=== PATIENT | female | born 1930 | race Caucasian/White ===

== ENCOUNTER → 2017-03-15 | Outpatient (CLI) | payer OTHER, MEDICARE | LOC: BMCIMAGING 09:13 | PROVIDERS: ATTEND Internal Medicine | DX: Z12.31 Encounter for screening mammogram for malignant neoplasm of breast (principal) | CPT/HCPCS: G0202 ==

== ENCOUNTER 2017-03-20 12:08 | Inpatient (IN) | payer OTHER, MEDICARE ==
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
[2017-03-20] MEDS ORDERED: ONDANSETRON DISINTEGRATING 4 MG TAB PO PRN (16:29)
[2017-03-20] MEDS ORDERED: ONDANSETRON 4 MG/2 ML VIAL IVP PRN (16:29)
[2017-03-20] MEDS ORDERED: ACETAMINOPHEN 325 MG TAB PO PRN (16:29)
[2017-03-20] MEDS ORDERED: oxyCODONE IR 5 MG TAB PO PRN (16:37)
--- NOTE | 2017-03-20 17:15 | GHP ---
[f rep st] HISTORY AND PHYSICAL DATE OF ADMISSION: 03/20/2017 HISTORY OF PRESENT ILLNESS: The patient is an 86-year-old female with a history of hypertension and TIA, who had a mechanical fall today, landing on her left elbow and hip, and she also bumped her head . She denies any antecedent chest pain, palpitations, or loss of consciousness. She has not had fev er, chills, or urinary symptoms today. She presented to the emergency department where she was diagn osed with a lateral epicondylar fracture. She had significant pain in her hip. Imaging has been neg ative for fracture but she is unable to stand. The patient currently states her pain is well controlled unless she is trying to move or stand. She is hungry. PAST MEDICAL HISTORY: Hypertension and TIA. ALLERGIES: Alendronate, alprazolam, amitriptyline, amlodipine, aspirin, azelastine, chlorpheniramine , ciprofloxacin, clindamycin, dextromethorphan, diphenhydramine, doxepin, guaifenesin, hydrocodone, i bandronate, ibuprofen, levofloxacin, lisinopril, losartan, melatonin, metoprolol, naproxen, nebivolol , phenylephrine, propofol, sulfa, temazepam, tramadol, trazodone, trimethoprim, Chlor-Trimeton, metal , and vitamins. HOME MEDICATIONS: Tylenol, PreserVision, vitamin D3, ascorbic acid, Plavix, and aspirin. SOCIAL HISTORY: Lives in [place]. No tobacco. No alcohol. FAMILY HISTORY: Parents . PHYSICAL EXAMINATION: VITAL SIGNS: Temp 36.9, blood pressure 193/96, pulse 88, breathing 18 times a minute, 93% in room air. GENERAL: No acute distress. HEENT: Sclerae anicteric. Oropharynx clear . Mucous membranes moist. NECK: Supple. No lymphadenopathy or JVD. LUNGS: Clear to auscultation bilaterally. HEART: S1, S2. ABDOMEN: Soft, nontender, nondistended. EXTREMITIES: Her lower ext remities are without edema. She has pain over her left hip. Her left fingers are neurovascularly in tact. Her left hand is in a cast. LABORATORY DATA: None. RADIOLOGY: Elbow fracture, interpreted by me, shows olecranon fracture. Hip x-ray shows no fracture and a prosthesis in place. Possible left superior pubic ramus fracture. Followup CAT scan shows portillo bcutaneous hematoma over the lateral aspect of the left hip with no osseous findings. Head CT shows no acute intracranial findings diffuse cerebral atrophy. Cervical spine CT shows no posttraumatic ab normality. I have discussed the case with Dr. German Bender and Sandra Gudino PA-C, in the emergenc y department. ASSESSMENT/PLAN: An 86-year-old female with mechanical fall. 1. Mechanical fall: I think she needs to be seen by PT and OT. 2. Left hip pain: Advanced imaging has shown no evidence of fracture. She will be weightbearing as tolerated and follow up from there. 3. History of transient ischemic attack. Will continue her aspirin and half dose Plavix. 4. Pain: Patient has a great deal, and I have written for scheduled Tylenol and p.r.n. oxycodone as these do not appear listed as one of her allergies. I do not thinks she requires IV pain medicines at this point in time. 5. Prophylaxis: Pharmacologic prophylaxis indicated if in the hospital longer than 24 hours. Will go ahead and start sequential compression devices tonight. 6. Olecranon fracture: In a cast. Hand is neurovascularly intact. Will follow. DISPOSITION: Observation status. CODE: Full. /[id number]/MODL
[2017-03-20] MEDS: PRESERVISION AREDS2 FORMULA EYE VIT 1 EACH PO SCH (21:29)
[2017-03-20] MEDS: ACETAMINOPHEN 500 MG TAB PO SCH ×2 (21:29→22:59)
[2017-03-21] MEDS: ACETAMINOPHEN 500 MG TAB PO SCH ×4 (03:24→23:31)
[2017-03-21 05:31] LABS: % IMMATURE GRANULYOCYTES 0.5 % (0.0-1.1); ABSOLUTE IMMATURE GRANULOCYTES 0.03 10^3/uL (0.00-0.10); ADD DIFF? NO; ADD MORPH? NO; ADD SCAN? NO; ATYPICAL LYMPHOCYTE FLAG 20 (0-99); FRAGMENT RBC FLAG 0 (0-99); HEMATOCRIT 37.4 % (38.0-47.0); HEMOGLOBIN 12.9 g/dL (12.6-16.3); LEFT SHIFT FLG 0 (0-99); LIPEMIA HEMOLYSIS FLAG 90 (0-99); MEAN CELL HEMOGLOBIN 29.1 pg (27.9-34.1); MEAN CELL HEMOGLOBIN CONCENTR. 34.5 g/dL (32.4-36.7); MEAN CELL VOLUME 84.4 fL (81.5-99.8); MEAN PLATELET VOLUME 9.6 fL (8.7-11.7); PLATELET CLUMPS FLAG 0 (0-99); PLATELET COUNT 246 10^3/uL (150-400); RED BLOOD CELL COUNT 4.43 10^6/uL (4.18-5.33); RED CELL DISTRIBUTION WIDTH 13.2 % (11.5-15.2)
[2017-03-21] MEDS ORDERED: Herbals/Supplements -Info Only PO SCH (09:00)
[2017-03-21] MEDS: PRESERVISION AREDS2 FORMULA EYE VIT 1 EACH PO SCH ×2 (11:30→21:42)
[2017-03-21] MEDS: CHOLECALCIFEROL VIT D3 1,000 UNITS TAB PO SCH (11:30)
[2017-03-21] MEDS: ASPIRIN 81 MG CHEWABLE TAB PO SCH (11:30)
[2017-03-21] MEDS: CLOPIDOGREL BISULFATE 75 MG TAB PO SCH ×2 (11:31→21:49)
--- NOTE | 2017-03-21 12:00 | ASMTCMCOM ---
CM Note CM Note Notes: PT rec home vs SNF, INSTRUCTIONAL MATERIALS DIRECTOR clears pt. 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 Pt requests referral to [facility]. Pt is currently observation status. Date Signed: 03/21/2017 12:00 PM Electronically Signed By:MAGNO Rucker
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
[2017-03-22] MEDS: ACETAMINOPHEN 500 MG TAB PO SCH ×3 (06:10→20:29)
[2017-03-22] MEDS: ASCORBIC ACID 500 MG TAB PO SCH (08:15)
[2017-03-22] MEDS: PRESERVISION AREDS2 FORMULA EYE VIT 1 EACH PO SCH ×2 (08:16→20:29)
[2017-03-22] MEDS: CHOLECALCIFEROL VIT D3 1,000 UNITS TAB PO SCH (08:16)
[2017-03-22] MEDS: ASPIRIN 81 MG CHEWABLE TAB PO SCH (08:16)
[2017-03-22] MEDS: ENOXAPARIN 40 MG/0.4 ML SYR SC SCH (09:22)
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
[2017-03-22] MEDS: hydrALAZINE 10 MG TAB PO PRN (10:33)
--- NOTE | 2017-03-22 12:03 | ASMTCMCOM ---
CM Note CM Note Notes: Pt accepted at [facility] for d/c Sunday. Date Signed: 03/22/2017 12:02 PM Electronically Signed By:MAGNO Rucker
--- NOTE | 2017-03-22 12:05 | GCON ---
[f rep st] CONSULTATION ORTHOPEDIC CONSULTATION DATE OF CONSULTATION: 03/22/2017 REASON FOR CONSULTATION: Left olecranon fracture. HISTORY OF PRESENT ILLNESS: The patient is an 86-year-old female, who had a mechanical fall on . She fell on her left hip and elbow. She was seen in the emergency department. Hip imaging, both p nava imaging as well as CT scan were negative for fracture. Left elbow imaging showed a nondisplaced olecranon fracture. She was admitted for pain control, physical therapy, and occupational therapy. I was asked to see her in the hospital. PRIOR MEDICAL HISTORY: Hypertension. There is a history of a TIA. HOME MEDICATIONS: See the attached medication list. SOCIAL HISTORY: She lives alone in [place]. Does not drink. Does not smoke. REVIEW OF SYSTEMS: No shortness of breath. No chest pain. Complaining of some hand pain with the spl int and some mild elbow pain when she moves today. Otherwise, review of systems is unremarkable. PHYSICAL EXAM: VITAL SIGNS TODAY: Her vital signs today are blood pressure is 132/65, heart rate is 67, respiratory rate is 15, oxygen saturations 94% on room air. GENERAL: She is alert and oriented x3 . Pleasant and cooperative. EXTREMITIES: Her left elbow is in a posterior splint that incorporates th e hand. She is moving her fingers well. Sensation in the radial, ulnar and median nerve distributions is intact. She has near full range of motion of the shoulder. She is able to move all fingers. IMAGING STUDIES: X-rays of the left elbow are reviewed. They show a nondisplaced olecranon fracture. She has diffuse osteopenia. ASSESSMENT: Left olecranon fracture. PLAN: We will keep her in the posterior splint. I loosened the Rafael wrap around her hand to give her a little relief from the pressure. I would like to re-x-ray her in 1 week. She had initially set up a n appointment at [facility] but she failed to . in a skil led nursing facility due to her impaired mobility. She may use a cane in the right hand. I do not wan t her to bear any weight on the left hand. Hopefully we can start range of motion exercises in the ak xt 2-3 weeks and get her out of the splint. /[id number]/MODL
[2017-03-22] MEDS: CLOPIDOGREL BISULFATE 75 MG TAB PO SCH (20:30)
[2017-03-23] MEDS: hydrALAZINE 10 MG TAB PO PRN (00:26)
[2017-03-23] MEDS: ACETAMINOPHEN 500 MG TAB PO SCH ×4 (04:33→22:06)
[2017-03-23] MEDS: ENOXAPARIN 40 MG/0.4 ML SYR SC SCH (10:11)
[2017-03-23] MEDS: [UNRECOGNIZED DRUG - OTHER] PO SCH (10:12)
[2017-03-23] MEDS: PRESERVISION AREDS2 FORMULA EYE VIT 1 EACH PO SCH ×2 (10:13→22:08)
[2017-03-23] MEDS: CHOLECALCIFEROL VIT D3 1,000 UNITS TAB PO SCH (10:13)
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
[2017-03-23] MEDS: VALSARTAN 40 MG TAB PO SCH ×2 (12:59→22:09)
[2017-03-23] MEDS ORDERED: Herbals/Supplements -Info Only PO SCH (16:32)
[2017-03-23] MEDS: CLOPIDOGREL BISULFATE 75 MG TAB PO SCH (22:09)
[2017-03-24 00:26] VITALS: RESP 16; TEMP 98.5; O2SAT 94
[2017-03-24] MEDS: ACETAMINOPHEN 500 MG TAB PO SCH ×2 (02:51→08:52)
[2017-03-24 07:35] VITALS: BP 182/80; PULSE 70
[2017-03-24] MEDS: PRESERVISION AREDS2 FORMULA EYE VIT 1 EACH PO SCH ×2 (08:50→09:38)
[2017-03-24] MEDS: ASCORBIC ACID 500 MG TAB PO SCH (08:51)
[2017-03-24] MEDS: VALSARTAN 40 MG TAB PO SCH (08:52)
[2017-03-24] MEDS: ENOXAPARIN 40 MG/0.4 ML SYR SC SCH (08:53)
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
[2017-03-24] MEDS: CHOLECALCIFEROL VIT D3 1,000 UNITS TAB PO SCH (09:38)
[2017-03-24] MEDS: [UNRECOGNIZED DRUG - OTHER] PO SCH (09:39)
--- NOTE | 2017-03-24 09:49 | PDIAF ---
- Diagnosis Diagnosis: left olecranon fx, pelvis fx/ uncontrolled htn Code Status: Full Code - Medication Management Discharge Medications: Medications to Continue on Transfer Acetaminophen [Tylenol 325mg (*)] 650 mg PO Q6 PRN 03/20/17 [Last Taken Unknown] Ascorbic Acid [Vitamin C 500 mg (*)] 450 mg PO TUTHSA 03/20/17 [Last Taken Unknown] C/E/Zn/Cu/OM3/DHA/EPA/LUT/ZEAX [Preservision Areds 2 Softgel] 1 each PO BID 09/01 [Last Taken 03/20/17 06:00] Cholecalciferol Vit D3 [Vitamin D3 (*)] 1,000 units PO DAILY 03/20/17 [Last Taken Unknown] Clopidogrel Bisulfate [Plavix (*)] 37.5 mg PO DAILY 03/20/17 [Last Taken ] Herbals/Supplements -Info Only 1 ea PO DAILY 03/20/17 [Last Taken Unknown] Herbals/Supplements -Info Only 1 ea PO FR 03/20/17 [Last Taken Unknown] Patricia Sommer Jr Multivitamins 2 tab PO DAILY 03/22/17 [Last Taken Unknown] Acetaminophen [Tylenol ES 500 mg (*)] 1,000 mg PO Q8 tab 03/24/17 [Last Taken Unknown] Valsartan [Diovan (*)] 40 mg PO BID tab 03/24/17 [Last Taken Unknown] Discharge Medications: Refer to the Discharge Home Medication list for PRN reason. - Orders Services needed: Physical Therapy, Occupational Therapy Diet Recommendation: no restrictions on diet Diet Texture: Regular Texture Diet Activity/Weight Bearing Restrictions: splint to left arm Additional: Losartan is a new medication for Gina/ this may need to be titrated up if bp remains elevated. - Labs/Radiology Imaging Orders: xray in one week of left elbow/ results to Dr Bender/ see him in 1-2 week - Follow Up Care Current Providers and Referrals: Patient,NotPresent [Unknown] - As per Instructions
--- NOTE | 2017-03-24 10:14 | GDS ---
[f rep st] DISCHARGE SUMMARY DISCHARGE DIAGNOSES: 1. Mechanical fall. 2. Left hip pain/left superior pubic ramus fracture. 3. Left olecranon elbow fracture. 4. Hypertension, uncontrolled. 5. Home stressors. CONSULTATIONS DURING STAY: Dr. German Bender. BRIEF HISTORY: The patient is an 86-year-old female with a history of hypertension, TIA. She presen chung to the emergency room after sustaining a fall and landing on her left elbow and hip area. She al so bumped her head. HOSPITAL COURSE: 1. Mechanical fall. She is doing well with PT and OT. She will be going to a half-way [facility] for rehab. 2. Left hip pain. The CT of her lower extremity reveals a subcutaneous hematoma over the lateral as pect of the left hip. Her hip x-ray shows a possible left superior pubic ramus fracture. She is abl e to ambulate with the use of her cane. 3. Left olecranon elbow fracture. This is nondisplaced. She is in a splint. She will get a repeat x-ray in a week and further followup with Dr. Bender. 4. Hypertension. Blood pressure has been very elevated. A trial of hydralazine was initiated. The patient did not like this, felt like this caused insomnia. She has been placed on low-dose valsarta n. This likely will need to be increased, but her blood pressure has improved. 5. Home stressors. Much improved. DISCHARGE CONDITION: Stable. Home blood pressure is 140/85, heart rate is 71, respiratory rate is 1 6, O2 sats on room air 94%, temperature is 36.9 Celsius. MEDICATIONS AT DISCHARGE: Please see the EMR. DISCHARGE INSTRUCTIONS: 1. To follow up with Dr. Bender in 1 week. 2. Repeat left elbow x-ray in 1 week. 3. If she develops fever, chills, chest pain, or shortness of breath, return to the ER. Greater than 30 minutes discharging and coordinating patient's care. /[id number]/MODL
--- NOTE | 2017-03-24 10:26 | ASMTCMCOM ---
CM Note CM Note Notes: Pt will dc today to [facility]. Spoke to Christina at - they are ready to accept. Orders/info sent, conf rec'd. Met w/pt who is in agreement w/dc poc. She has contacted her to let him know. IM letter signed and delivered. D/W RN and hospitalist. Date Signed: 03/24/2017 10:25 AM Electronically Signed By:Ly Castrejon RN
== END 2017-03-24 11:53 | DRG 536 ==
LOC: EDUNIT# → F3N 17:56 → OBSVTOIN 03-21 14:24
PROVIDERS: ADMIT Internal Medicine; ATTEND Internal Medicine
DX: S32.512A Fracture of superior rim of left pubis, initial encounter for closed fracture (principal); S52.025A Nondisplaced fracture of olecranon process without intraarticular extension of left ulna, initial encounter for closed fracture; S70.02XA Contusion of left hip, initial encounter; S09.90XA Unspecified injury of head, initial encounter; I10 Essential (primary) hypertension; V48.4XXA Person boarding or alighting a car injured in noncollision transport accident, initial encounter; W01.0XXA Fall on same level from slipping, tripping and stumbling without subsequent striking against object, initial encounter
CPT/HCPCS: 92523-GN; 97116-GP; 97161-GP; 97166-GO; 97530-GO; 97535-GO; G0378; G8978-GP-CJ; G8979-GP-CI; G8987-GO-CK; G8988-GO-CJ; G9168-GN-CH; G9169-GN-CH; G9170-GN-CH; J1650

== ENCOUNTER → 2017-05-02 | Outpatient (CLI) | payer OTHER, MEDICARE | LOC: BMCIMAGING 10:07 | PROVIDERS: ATTEND Internal Medicine | DX: R92.8 Other abnormal and inconclusive findings on diagnostic imaging of breast (principal) | CPT/HCPCS: 76641; G0206 ==

== ENCOUNTER 2017-09-05 10:33 | Observation (INO) | payer OTHER, MEDICARE ==
--- NOTE | 2017-09-05 10:38 | EDPHY ---
H & P Time Seen by Provider: 09/05/17 10:35 - Medical/Surgical History Hx Asthma: No Hx Chronic Respiratory Disease: No Hx Diabetes: No Hx Cardiac Disease: No Hx Renal Disease: No Hx Cirrhosis: No Hx Alcoholism: No Hx HIV/AIDS: No Hx Splenectomy or Spleen Trauma: No Other PMH: L hip replacement, TIA, angina, HTN - Social History Smoking Status: Never smoked Constitutional: Initial Vital Signs Temperature (C) 36.8 C 09/05/17 10:33 Heart Rate 77 09/05/17 10:33 Respiratory Rate 16 09/05/17 10:33 Blood Pressure 178/97 H 09/05/17 10:33 O2 Sat (%) 98 09/05/17 10:33 O2 Delivery Mode Room Air Allergies/Adverse Reactions: alendronate sodium [From Fosamax] Allergy (Verified 03/20/17 12:26) alprazolam Allergy (Verified 03/20/17 12:26) amitriptyline Allergy (Verified 03/20/17 12:26) amlodipine Allergy (Verified 03/20/17 12:26) aspirin Allergy (Verified 03/22/17 10:41) bloating with "higher doses" azelastine [From Astelin] Allergy (Verified 03/20/17 12:26) chlorpheniramine [From Tussionex] Allergy (Verified 03/20/17 12:26) ciprofloxacin Allergy (Verified 03/20/17 12:26) clindamycin Allergy (Verified 03/20/17 12:26) dextromethorphan [From Mucinex Fast-MaxSev Cold-Sinus] Allergy (Verified 12:26) diphenhydramine [From Benadryl] Allergy (Verified 03/20/17 12:26) doxepin Allergy (Verified 03/20/17 12:26) guaifenesin [From Mucinex DM] Allergy (Verified 03/20/17 12:26) hydrocodone [From Tussionex] Allergy (Verified 03/20/17 12:26) ibandronate sodium [From Boniva] Allergy (Verified 03/20/17 12:26) ibuprofen Allergy (Verified 03/20/17 12:26) levofloxacin Allergy (Verified 03/20/17 12:26) lisinopril Allergy (Verified 03/20/17 12:26) losartan [From Cozaar] Allergy (Verified 03/20/17 12:26) melatonin Allergy (Verified 03/20/17 12:26) metoprolol Allergy (Verified 03/20/17 12:26) naproxen [From Aleve] Allergy (Verified 03/20/17 12:26) nebivolol [From Bystolic] Allergy (Verified 03/20/17 12:26) phenylephrine [From Mucinex Fast-MaxSev Cold-Sinus] Allergy (Verified 03/20/17 12:26) propofol Allergy (Verified 03/20/17 12:26) Sulfa (Sulfonamide Antibiotics) Allergy (Verified 03/20/17 12:26) temazepam Allergy (Verified 03/20/17 12:26) tramadol Allergy (Verified 03/20/17 12:26) trazodone Allergy (Verified 03/20/17 12:26) trimethoprim Allergy (Verified 03/20/17 12:26) chlortrimeton Allergy (Uncoded 03/20/17 12:26) metal Allergy (Uncoded 03/20/17 12:26) OTC vitamins Allergy (Uncoded 03/20/17 12:26) Home Medications: Medication Instructions Recorded Herbals/Supplements -Info Only 1 ea PO DAILY 03/20/17 Aspirin [Aspirin 81mg (*)] 81 mg PO DAILY 09/05/17 Brimonidine 0.2% [ALPHAGAN 0.2% 1 drops EACHEYE BID 09/05/17 (RX)] Valsartan [Diovan (*)] 40 mg PO DAILY 09/05/17 Medical Decision Making - Diagnostics Imaging Results: Imaging Impressions Head CT 09/05/17 10:39 Impression: 1. No intracranial hemorrhage or territorial infarct. 2. Stable mild atrophy and probable small vessel ischemic changes in the white matter. 3. Bilateral maxillary sinus disease. 4. Consider MRI of the brain, if there is continued clinical concern. Findings were communicated by telephone with Dr. Barber at 11:10 AM 09/05/2017 Head CTA 09/05/17 11:07 Impression: 1. No evidence of acute vessel occlusion. No carotid stenosis. 2. Segmental narrowing of the distal left vertebral artery just before the basilar confluence. This segment was suboptimally evaluated on previous exams and could therefore represent congenital narrowing or segmental vasospasm. 3. 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 Findings were discussed with Dr. Barber at 12:10 PM 09/05/2017 Neck CTA 09/05/17 11:08 Impression: 1. No evidence of occlusion or flow-limiting stenosis. Limited evaluation of distal cervical carotid segments due to metallic artifact from dental hardware. 2. Bilateral tortuosity of distal cervical carotid segments. Measurement of carotid stenosis is based on the residual internal carotid diameter with [place] Symptomatic Carotid Endarterectomy Trial (NASCET) based stenosis levels. Results were discussed with Dr. Barber at 12:10 PM 09/05/2017 Imaging: Discussed imaging studies w/ inbound call center representative Radiologist, I viewed and interpreted images myself ED Course/Re-evaluation: CHIEF COMPLAINT: Difficulty thinking and talking HISTORY OF PRESENT ILLNESS: The patient is an 86 y/o female with a history of a TIA arriving via EMS, complaining of difficulty talking and thinking this morning, onset 09:00, 1.75 hours ago. She felt normal when she woke up this morning. While eating breakfast there were white spots in her vision. She then started talking to her daughter, who noticed that the patient's speech was gargled and not making sense. The patient states that "everything was blank" in regards to her thinking and being able to talk. Her called EMS; when they arrived 30 minutes later, her symptoms were improving. While en route to the emergency department her BGL was 125. Currently she is having a pressure in her forehead and changes in her right eye peripheral vision. Takes baby aspirin daily. Denies taking anticoagulants. Denies weakness in extremities, chest pain, shortness of breath, abdominal pain, fever. REVIEW OF SYSTEMS: A 10 point review of systems was performed and is negative with the exception of the elements mentioned in the history of present illness. PHYSICAL EXAM: HR, BP, O2 Sat, RR. Temp noted General Appearance: Alert, well hydrated, appropriate, and non-toxic appearing. Head: Atraumatic without scalp tenderness or obvious injury Eyes: Pupils equal, round, reactive to light and accommodation, EOMI, no trauma , no injection. Ears: Clear bilaterally, no perforation, normal landmarks Nose: Atraumatic, no rhinorrhea, clear. Throat: There is no erythema or exudates, no lesions, normal tonsils, mucus membranes moist. Neck: Supple, nontender, no lymphadenopathy. Respiratory: No retractions, no distress, no wheezes, and no accessory muscle use. Lungs are clear to auscultation bilaterally. Cardiovascular: Regular rate and rhythm, no murmurs, rubs, or gallops. Good capillary refill all extremities. Gastrointestinal: Abdomen is soft, nontender, non-distended, no masses, no rebound, no guarding, no peritoneal signs. Musculoskeletal: Normal active ROM of all extremities, atraumatic. Neurological: Alert, appropriate, and interactive. The patient has normal DTRs and non-focal cranial nerves, motor, sensory, and cerebellar exam. Skin: No rashes, good turgor, no nodules on palpation. Past medical history: TIA, angina, hypertension Past surgical history: Left hip replacement Family history: Denies Social history: at bedside, lives in [place], retired DIAGNOSTICS/PROCEDURES/CRITICAL CARE TIME: The 12 lead EKG was interpreted by myself as sinus rhythm with a left axis deviation and a rate of 77. See hard copy and/or "tracemaster" electronic copy for interpretation. Head CT w/o contrast: Negative Head and Neck CTA: Mild distal left vertebral artery narrowing Critical care time spent by me, Dr. Barber, exclusively with this patient was 30 minutes, exclusive of PA time and exclusive of procedures. The organ system at risk was the brain and I had multiple imaging studies and admitted the patient for TIA observation to prevent worsening of the patients condition. DIFFERENTIAL DIAGNOSIS: The differential diagnosis for the patient's neurologic deficits included but was not limited to peripheral causes, central causes including CVA, TIA, electrolyte abnormalities and dehydration, cardiogenic causes, atypical causes like migraine syndrome. MEDICAL DECISION MAKING: The patient is an 86 y/o female with a history of a TIA arriving via EMS, presenting with difficulty talking and thinking this morning, onset 09:00, 1.75 hours ago. Her speech symptoms have improved. She is currently having temporal visual field abnormalities, primarily on the right, and a full sensation in her forehead. Neuro exam is normal and her NIH stroke scale is 0. EKG and head CT w/ o contrast ordered. 1036: Stroke alert called by myself due to patient's symptoms. 1039: The 12 lead EKG was interpreted by myself as sinus rhythm with a left axis deviation and a rate of 77. 1043: Normal glucose and creatinine via IStat. 1044: Consulted with Dr. Jj, neurologist with [facility], regarding this patient. 1050: Patient has returned from CT scan. 1056: Dr. Jj is consulting this patient via the stroke robot. 1058: Reassessed patient during her consultation with Dr. Jj. Patient will not receive TPA, but she will be admitted for TIA observation. Patient is comfortable with plan for admission. CTA head and neck ordered. 1110: Spoke with Dr. Goldstein, radiologist, patient's head CT w/o contrast is normal. CTA's pending. 1124: Patient has returned from CTA scans. 1138: Consulted with hospitalist service, Dr. Valderrama accepts admission of this patient for TIA observation. 1210: Spoke with Dr. Goldstein, radiologist, regarding patient's head and neck CTA. There is mild narrowing of the distal left vertebral artery. 1233: Consulted with Dr. Shin, regarding this patient. He will consult on this patient during her stay. - Data Points Laboratory Results: 09/05/17 10:42 POC Hgb 15.6 gm/dL gm/dL (12.6-16.3) POC Hct 46 % % (38-47) POC Sodium 131 mEq/L L mEq/L (135-145) POC Potassium 3.8 mEq/L mEq/L (3.3-5.0) POC Chloride 94 mEq/L L mEq/L (97-110) POC BUN 17 mg/dL mg/dL (7-23) POC Creatinine 0.8 mg/dL mg/dL (0.6-1.0) POC Glucose 73 mg/dL mg/dL (70-100) Medications Given: Discontinued Medications Acetaminophen (Tylenol) 325 mg PO EDNOW ONE Stop: 09/05/17 12:23 Last Admin: 09/05/17 12:33 Dose: 325 mg Point of Care Test Results: 09/05/17 10:42 POC Sodium 131 L POC Potassium 3.8 POC Chloride 94 L POC BUN 17 POC Creatinine 0.8 POC Glucose 73 Departure - Departure Disposition: [facility] Inpatient Acute Clinical Impression: TIA (transient ischemic attack) Qualifiers: Transient cerebral ischemia type: other Qualified Code(s): G45.8 - Other transient cerebral ischemic attacks and related syndromes Condition: Fair Referrals: Patient,NotPresent [Unknown] - As per Instructions Report Scribed for: Santy Barber Report Scribed by: Rukhsana Falcon Date of Report: 09/05/17 Time of Report: 13:27
--- NOTE | 2017-09-05 10:44 | CPEKG ---
Heart Rate: 77 RR Interval: 779 P-R Interval: 200 QRSD Interval: 78 QT Interval: 388 QTC Interval: 440 P [place]: 49 QRS [place]: -30 T Wave [place]: 68 EKG Severity - ABNORMAL ECG - EKG Impression: SINUS RHYTHM EKG Impression: LEFT AXIS DEVIATION EKG Impression: PROBABLE ANTEROSEPTAL INFARCT, OLD Electronically Signed By: Santy Barber 05-Sep-2017 14:17:08
[2017-09-05] MEDS ORDERED: IOPAMIDOL (ISOVUE 370) 100 ML BTL IV ONE (11:10)
[2017-09-05] MEDS ORDERED: ACETAMINOPHEN 325 MG TAB PO ONE (12:22)
[2017-09-05] MEDS ORDERED: ACETAMINOPHEN 325 MG TAB PO PRN (14:29)
[2017-09-05] MEDS ORDERED: ONDANSETRON 4 MG/2 ML VIAL IVP PRN (14:29)
[2017-09-05] MEDS ORDERED: ONDANSETRON DISINTEGRATING 4 MG TAB PO PRN (14:29)
--- NOTE | 2017-09-05 14:35 | PDGENHP ---
History and Physical - Chief Complaint difficulty speaking - History of Present Illness The patient is an 86 y/o female with a history of a TIA who presented to the ED , complaining of difficulty talking and thinking this morning, onset 09:00. She felt normal when she woke up this morning. While eating breakfast there were white spots in her vision. She then started talking to her daughter, who noticed that the patient's speech was gargled and not making sense. The patient states that "everything was blank" in regards to her thinking and being able to talk. Her called EMS. While en route to the emergency department her BGL was 125. She takes baby aspirin daily. Denies taking anticoagulants. Denies weakness in extremities, chest pain, shortness of breath, abdominal pain, fever. Reports that her BP has been running a little high over the last few days She continues to have a generalized frontal Headache with intermittent vision deficits and seeing double affecting both eyes. In the E.D., [place] was consulted and they recommended admission for TIA workup and observation. Dr. Shin has been consulted and will follow CTA Neck c/w no occlusion or flow limiting stenosis CTA Head c/w segmental narrowing of distal left vertebral artery. No acute findings Head CT did not show acute findings Labs: point of care labs. H/H ok. Na 131 She has a hx of TIA and HTN PMHx: HTN, TIA, Agina PSHx: left hips replacement Soc Hx: lives with in [place] FmHx: non contributory History Information - Allergies/Home Medication List Allergies/Adverse Reactions: alendronate sodium [From Fosamax] Allergy (Verified 03/20/17 12:26) alprazolam Allergy (Verified 03/20/17 12:26) amitriptyline Allergy (Verified 03/20/17 12:26) amlodipine Allergy (Verified 03/20/17 12:26) aspirin Allergy (Verified 03/22/17 10:41) bloating with "higher doses" azelastine [From Astelin] Allergy (Verified 03/20/17 12:26) chlorpheniramine [From Tussionex] Allergy (Verified 03/20/17 12:26) ciprofloxacin Allergy (Verified 03/20/17 12:26) clindamycin Allergy (Verified 03/20/17 12:26) dextromethorphan [From Mucinex Fast-MaxSev Cold-Sinus] Allergy (Verified 12:26) diphenhydramine [From Benadryl] Allergy (Verified 03/20/17 12:26) doxepin Allergy (Verified 03/20/17 12:26) guaifenesin [From Mucinex DM] Allergy (Verified 03/20/17 12:26) hydrocodone [From Tussionex] Allergy (Verified 03/20/17 12:26) ibandronate sodium [From Boniva] Allergy (Verified 03/20/17 12:26) ibuprofen Allergy (Verified 03/20/17 12:26) levofloxacin Allergy (Verified 03/20/17 12:26) lisinopril Allergy (Verified 03/20/17 12:26) losartan [From Cozaar] Allergy (Verified 03/20/17 12:26) melatonin Allergy (Verified 03/20/17 12:26) metoprolol Allergy (Verified 03/20/17 12:26) naproxen [From Aleve] Allergy (Verified 03/20/17 12:26) nebivolol [From Bystolic] Allergy (Verified 03/20/17 12:26) phenylephrine [From Mucinex Fast-MaxSev Cold-Sinus] Allergy (Verified 03/20/17 12:26) propofol Allergy (Verified 03/20/17 12:26) Sulfa (Sulfonamide Antibiotics) Allergy (Verified 03/20/17 12:26) temazepam Allergy (Verified 03/20/17 12:26) tramadol Allergy (Verified 03/20/17 12:26) trazodone Allergy (Verified 03/20/17 12:26) trimethoprim Allergy (Verified 03/20/17 12:26) chlortrimeton Allergy (Uncoded 03/20/17 12:26) metal Allergy (Uncoded 03/20/17 12:26) OTC vitamins Allergy (Uncoded 03/20/17 12:26) Home Medications: Herbals/Supplements -Info Only 1 ea PO DAILY 03/20/17 [Last Taken Unknown] Aspirin [Aspirin 81mg (*)] 81 mg PO DAILY 09/05/17 [Last Taken 18] Brimonidine 0.2% [ALPHAGAN 0.2% (RX)] 1 drops EACHEYE BID 09/05/17 [Last Taken 09/05/17] Valsartan [Diovan (*)] 40 mg PO DAILY 09/05/17 [Last Taken 09/04/17] I have personally reviewed and updated: medical history, social history - Social History Smoking Status: Never smoked Review of Systems Review of Systems: ROS: 10pt was reviewed & negative except for what was stated in HPI & below Physical Exam Physical Exam: Temp Pulse Resp BP Pulse Ox 36.8 C 75 16 179/127 H 97 09/05/17 10:33 09/05/17 12:48 09/05/17 12:48 09/05/17 12:48 09/05/17 12:48 Constitutional: no apparent distress, appears nourished Eyes: PERRL, EOMI Ears, Nose, Mouth, Throat: moist mucous membranes, hearing normal Cardiovascular: regular rate and rhythym, No JVD, No edema Respiratory: no respiratory distress, no rales or rhonchi, clear to auscultation Gastrointestinal: normoactive bowel sounds, soft, non-tender abdomen Skin: warm Neurologic: AAOx3, CN II-XII Intact, No facial droop Psychiatric: interacting appropriately, not anxious, not encephalopathic, thought process linear Lymph, Heme, Immunologic: No petechiae Lab Data & Imaging Review POC Hgb 15.6 gm/dL (12.6-16.3) 09/05/17 10:42 POC Hct 46 % (38-47) 09/05/17 10:42 POC Sodium 131 mEq/L (135-145) L 09/05/17 10:42 POC Potassium 3.8 mEq/L (3.3-5.0) 09/05/17 10:42 POC Chloride 94 mEq/L (97-110) L 09/05/17 10:42 POC BUN 17 mg/dL (7-23) 09/05/17 10:42 POC Creatinine 0.8 mg/dL (0.6-1.0) 09/05/17 10:42 POC Glucose 73 mg/dL (70-100) 09/05/17 10:42 Assessment & Plan Assessment: #Possible TIA (transient ischemic attack) (Acute) #MINA vs Migraine, possibly contributing to her sx's #HTN #Hyponatremia Plan: Admit for observation telemetry TTE Increase Aspirin Neuro to see check for risk factors, lipid panel, a1c Hold off on MRI for now, unless recommended by Neuro Permissive HTN, hold Valsartan, Hydralazine PRN for elevated BP The etiology is unclear and maybe multifactorial. She has a MINA that could be causing her neurological symptoms. Her BP is elevated and that could have caused a MINA. However, cannot r/o TIA. For now, cont plan per above until seen by Neurology. She also reports an allergy to Aspirin, although she is on 81mg daily. She reports volume overload when she is on more than 81 mg. Will await Neuro reccs. Cardiac Diet Tylenol PRN MINA. she reports initial resolution with her first dose. PT/OT
[2017-09-05] MEDS ORDERED: hydrALAZINE 20 MG/ML VIAL IVP PRN (15:14)
--- NOTE | 2017-09-05 17:33 | GCON ---
[f rep st] CONSULTATION NEUROLOGY CONSULT CHIEF COMPLAINT: Confusion, headaches, visual blurring. HISTORY OF PRESENT ILLNESS: The patient is a very pleasant 86-year-old lady with multiple medication intolerances. She has been measuring her own blood pressure on a regular basis and since Sunday she has noticed it has been elevating to the point it has been 190 since Sunday and it has been very concerning to her causing some symptoms. In fact, she was about to see her operator cavity pump, Dr. Santoyo, because of this. She had not seen it nor did she change her medications and it continued to be 190 until this morning. She culminated getting symptoms of feeling blurry vision, headache and feeling her mind go "blank." It was not a specific language symptom, but rather a global feeling of confusion or "trouble thinking". Because of this, she came to the ER. However, it was more of a generalized confusion along with bifrontal headache and visual blurriness. In the emergency department, her blood pressure was in the 180s and on the floor up to the 190s. She had a CTA of the head and neck. The CTA shows no evidence of flow-limiting stenosis in the neck. In the head there is some segmental narrowing in the left distal vertebral artery. Otherwise negative. No acute findings. There is a venous anomaly in the left frontal lobe. Head CT without contrast shows no acute findings. No bleeds. For past medical history, social history, family history, allergies, home medications see Dr. Turner's note. PHYSICAL EXAMINATION: VITAL SIGNS: Blood pressure is 191/88, temperature 36.8 , heart rate 74. GENERAL: The patient is in no acute distress. Very pleasant. Higher mental function she is awake and alert. No aphasia. CRANIAL NERVES: Normal 2 through 7. MOTOR: Normal strength and tone throughout. Sensation normal to light touch in all 4 extremities. Coordination is normal. IMPRESSION AND PLAN: 1.Probable hypertensive urgency. Overall, her clinical history and clinical data best fit with a hypertensive urgency. She has been having high blood pressure since Sunday, which has been persistent and escalating and culminating into symptoms consistent with hypertensive urgency including headaches, confusion, and visual blurring. I talked to the primary hospitalist, Dr. Turner, and we both agree with gentle lowering of her blood pressure. Certainly, we could switch her anti-platelet therapy to Plavix 75 mg every morning for vascular prophylaxis. She has had insomnia with this medication in the past. If she develops insomnia with taking Plavix in the morning, she could switch back to a baby aspirin. We discussed potential risks, benefits, and alternatives of Plavix. Otherwise, she should continue her home medications and have close followup when she discharges home with her PCP and Dr. Santoyo. He could consider any further testing such as ECG monitoring for atrial fibrillation. No further recommendations. We will continue to follow this patient as needed. Please do not hesitate to call for any questions or changes in neurologic status with this very pleasant patient. seventy total minutes floor time reviewing hospital records, imaging, direct counseling with the patient and coordination of care. Thank you for this consultation. /[id number]/MODL MTDD
[2017-09-05] MEDS: VALSARTAN 40 MG TAB PO SCH ×2 (18:24→20:03)
[2017-09-05] MEDS: BRIMONIDINE 0.2% 5 ML OPHT.BTL EACHEYE SCH (18:30)
--- NOTE | 2017-09-05 19:35 | ECHO ---
[email or web address] [address] Main: [phone] Fax: Transthoracic Echocardiogram Name: KIKE FIERRO MR#: [id number] Study Date: 09/05/2017 Study Time: 03:56 PM Date of : 1930 Age: 86 year(s) Height: 149.9 cm (59 in.) Weight: 49.9 kg (110 lb.) BSA: 1.43 m2 Gender: Female Examination: Echo with Agitated Saline Indication: TIA Image Quality: Contrast: Requested by: Pawel Turner BP: 191 mmHg/88 mmHg Heart Rate: Rhythm: Indication: TIA Procedure Staff Imposer: Fidel Salazar RDCS Reading Physician: Davis Santoyo MD Requesting Provider: Measurements: Chambers Valvular Assessment AV/MV Valvular Assessment TV/PV Normal Normal Normal Name Value Range Name Value Range Name Value Range Ao Renee (MM): 2.8 cm (2.2 cm-3.7 AV Vmax: 1.38 m/s (1 m/s-1.7 TR Vmax: 2.54 mm/s ( - ) cm) m/s) TR PGmax: 26 mmHg ( - ) IVSd (2D): 0.8 cm (0.6 cm-1.1 AV maxP mmHg ( - ) syst. PAP: 31 mmHg ( - ) cm) LVOT Vmax: 1.07 m/s (0.7 m/s-1.1 PV Vmax: 0.92 m/s (0.6 m/s-0.9 LVDd (2D): 3.5 cm (3.9 cm-5.3 m/s) m/s) cm) MV E Vmax: 0.69 m/s ( - ) PV PGmax: 3 mmHg ( - ) LVDs (2D): 2.0 cm (2.1 cm-4 MV A Vmax: 1.00 m/s ( - ) cm) MV E/A: 0.69 ( - ) LVPWd (2D): 0.8 cm ( - ) LVEF (2D): 76 (>=54 %) Continued Measurements: Chambers Valvular Assessment AV/MV Valvular Assessment TV/PV Name Value Name Value Name Value LADs Lon.2 cm MV E' Septal: 0.07 m/s CVP (est.): 5 mmHg LA Area: 12.4 cm2 MV E/E' Septal: 10.10 MV E/E' Lateral: 10.10 Findings: Left Ventricle: Normal size left ventricle. No LV hypertrophy. Normal global systolic LV function. EF is 76 %. No regional wall motion abnormality. Diastolic dysfunction is present. . Right Ventricle: Normal size right ventricle. Normal RV function. Patient: KIKE FIERRO Study Date: 09/05/2017 Page 1 of 2 03:56 PM Left Atrium: The left atrium is normal in size. An agitated saline study was performed and was negative for intracardiac shunting. Right Atrium: The right atrium is normal in size. Mitral Valve: The mitral valve is normal in appearance and function. There is no mitral valve regurgitation. Aortic Valve: The aortic valve is normal in appearance. Trivial aortic valve regurgitation. Tricuspid Valve: The tricuspid valve is normal in appearance and function. Pulmonic Valve: The pulmonic valve is normal in appearance and function. Aorta: The aorta is normal. Pericardium: No pericardial effusion. (No Signature Object) Patient: KIKE FIERRO Study Date: 09/05/2017 Page 2 of 2 03:56 PM [id number]
[2017-09-06 04:51] LABS: PLATELET COUNT 261 10^3/uL (150-400)
[2017-09-06 07:13] VITALS: RESP 16
[2017-09-06] MEDS ORDERED: VALSARTAN 40 MG TAB PO SCH (09:00)
[2017-09-06] MEDS ORDERED: Herbals/Supplements -Info Only PO SCH (09:00)
[2017-09-06] MEDS ORDERED: ASPIRIN 81 MG CHEWABLE TAB PO SCH (09:00)
[2017-09-06] MEDS: BRIMONIDINE 0.2% 5 ML OPHT.BTL EACHEYE SCH (09:18)
[2017-09-06] MEDS: VALSARTAN 40 MG TAB PO SCH (09:20)
--- NOTE | 2017-09-06 10:55 | ASMTCMCOM ---
CM Note CM Note Notes: Reviewed chart and discussed w/RN. Pt has been cleared by PT/OT to dc home. TIA symptoms mostly resolved. Anticipate pt will dc home w/ w/no CM needs. CM available if this changes. Date Signed: 09/06/2017 10:54 AM Electronically Signed By:Ly Casrtejon RN
[2017-09-06 11:38] VITALS: BP 151/77; PULSE 76; TEMP 98.4; O2SAT 95
--- NOTE | 2017-09-06 16:12 | GDS ---
[f rep st] DISCHARGE SUMMARY DISCHARGE DIAGNOSES: Include: 1. Hypertensive urgency. 2. Hypertension. 3. History of transient ischemic attack. 4. History of angina. HISTORY OF PRESENT ILLNESS: An 86-year-old female with a history of a TIA and hypertension who prese nts with spots in her vision and difficulty making her words make sense. For details of the patient' s initial presentation, please see the history and physical dated 09/05/2017. CONSULTATIVE SERVICES: Include Neurology. PROCEDURES: On 09/05/2017, the patient had a CTA of the head and neck that shows no evidence of occl usion or flow-limiting stenoses. On 09/05/2017, the patient had a noncontrast CT of the head that sh ows no acute infarct. On 09/05/2017, the patient had a transthoracic echocardiogram which shows norm al LV size and function. HOSPITAL COURSE: Hypertensive urgency. The patient's neurologic symptoms did resolve after blood pr essure control was improved. The patient historically does not tolerate many medications. The decis ion was made, after discussion with her, to continue with the Diovan 40 mg twice daily, which has obt ained markedly improved blood pressure control from originally the 190s to the 130s and 160s, and the patient will remain on low-dose aspirin as she tolerates this, and will follow in the outpatient set ting with her primary care, Dr. Jane, as well as Dr. Santoyo. MEDICATIONS AT TIME OF DISPOSITION: Please reference the medication reconciliation printed on 2017. FOLLOWUP APPOINTMENTS: Include with: 1. Dr. Santoyo. 2. Dr. Jane in 1 week's time with twice daily blood pressure measurements. PENDING STUDIES AT TIME OF DICTATION: None. I spent greater than 30 minutes in the planning and coordination of this discharge. /[id number]/MODL
== END 2017-09-06 12:53 | disposition home or self-care (01) ==
LOC: EDUNIT# → F3N 14:46
PROVIDERS: ADMIT Internal Medicine; ATTEND Internal Medicine
DX: I16.0 Hypertensive urgency (principal); I10 Essential (primary) hypertension; Z86.73 Personal history of transient ischemic attack (TIA), and cerebral infarction without residual deficits; Z86.79 Personal history of other diseases of the circulatory system
CPT/HCPCS: 70450; 70496; 70498; 93005; 93306; 97116; 97161; 97165; 99291; G0378; G8978; G8979; G8980; G8987; G8988; G8989; Q9967; 82947-QW